=== PATIENT | male | born 1965 | race Caucasian/White ===

== ENCOUNTER 2021-01-15 11:27 | Emergency (ER) | payer BC ==
[2021-01-15] MEDS ORDERED: PREDNISONE 10 M10 MG PO (12:32)
[2021-01-15] MEDS ORDERED: CEPHALEXIN500 M1 PO (12:32)
[2021-01-15] MEDS ORDERED: ZYRTEC10 MG PO (12:32)
== END 2021-01-15 12:45 | disposition home or self-care (01) ==
LOC: ER1 11:27
DX: L03.115 Cellulitis of right lower limb (principal); R21 Rash and other nonspecific skin eruption; L30.9 Dermatitis, unspecified
CPT/HCPCS: 99282

== ENCOUNTER 2021-04-12 17:09 | Emergency (ER) | payer BC ==
[~2021-04-12 17:09] MED LIST: CEPHALEXIN500 M1 PO; PREDNISONE 10 M10 MG PO; ZYRTEC10 MG PO
[2021-04-12 18:20] LABS: HEMOGLOBIN 16.7 gm/dl (14.0-17.5); RED BLOOD COUNT 5.18 M/UL (4.20-5.50); WHITE BLOOD COUNT 11.5 K/UL (4.5-11.0)
[2021-04-12 18:43] LABS: BUN/CREATININE RATIO 24 (0-10)
== END 2021-04-12 21:10 | disposition home or self-care (01) ==
LOC: ER1 17:09
PROVIDERS: Family Medicine; Internal Medicine Gastroenterology
PROC: 0DC38ZZ Extirpation of Matter from Lower Esophagus, Via Natural or Artificial Opening Endoscopic (ICD-10-PCS; principal; 2021-04-12 19:25)
DX: T18.128A Food in esophagus causing other injury, initial encounter (principal); Z20.822 Contact with and (suspected) exposure to COVID-19; K20.0 Eosinophilic esophagitis; K22.2 Esophageal obstruction; Z88.2 Allergy status to sulfonamides; X58.XXXA Exposure to other specified factors, initial encounter
CPT/HCPCS: 71045; 80048; 85025; 99284; J2250; J3010; J7040; U0002